=== PATIENT | male | born 1930 | race Caucasian/White ===

== ENCOUNTER 2017-05-04 01:07 | Observation (INO) | payer MEDICARE, BC ==
--- NOTE | 2017-05-04 01:50 | XR ---
EXAM: XR Chest, 2 Views CLINICAL HISTORY: Reason: Chest Pain TECHNIQUE: Frontal and lateral views of the chest. COMPARISON: No relevant prior studies available. FINDINGS: Lungs: Unremarkable. No consolidation. Pleural space: Unremarkable. No pneumothorax. Heart: Findings consistent with prior CABG. Mediastinum: Unremarkable. Bones/joints: Unremarkable. IMPRESSION: No acute findings.
--- NOTE | 2017-05-04 01:50 | ED ---
General Adult HPI - General Chief complaint: Extremity Injury, Upper Stated complaint: L arm pain Time Seen by Provider: 05/04/17 01:15 Source: patient, RN notes reviewed Mode of arrival: ambulatory Limitations: no limitations - History of Present Illness Initial comments: This a 86-year-old male presents emergency Department with chief complaint: Left arm pain. Patient is comes emergency Department with concerns of possible cardiac issues. He states the pain started earlier this morning but states pain is actually resolved on his way to the emergency department. He took ibuprofen twice a day he states he did not feel that it helped. He denies any associated paresthesias or weakness. He states he had no injury. Patient had a prior cardiac stenting and bypass. He denies chest pain, shortness breath, headache or dizziness. He states he only had left arm pain from his shoulder to his left elbow with no other associated symptoms and denied any alleviating or aggravating symptoms - Related Data Allergies Allergy/AdvReac Type Severity Reaction Status Date / Time Sulfa (Sulfonamide Allergy Itching Verified 05/04/17 01:14 Antibiotics) Review of Systems ROS Statement: Those systems with pertinent positive or pertinent negative responses have been documented in the HPI. ROS Other: All systems not noted in ROS Statement are negative. Past Medical History Past Medical History: Diabetes Mellitus, Hyperlipidemia, Hypertension History of Any Multi-Drug Resistant Organisms: None Reported Past Surgical History: Coronary Bypass/CABG, Heart Catheterization With Stent Past Psychological History: No Psychological Hx Reported Smoking Status: Former smoker Past Alcohol Use History: None Reported Past Drug Use History: None Reported General Exam Limitations: no limitations General appearance: alert, in no apparent distress Head exam: Present: atraumatic, normocephalic, normal inspection Eye exam: Present: normal appearance, PERRL, EOMI. Absent: scleral icterus, conjunctival injection, periorbital swelling ENT exam: Present: normal exam, normal oropharynx, mucous membranes moist, TM's normal bilaterally, normal external ear exam Neck exam: Present: normal inspection, full ROM. Absent: tenderness, meningismus, lymphadenopathy Respiratory exam: Present: normal lung sounds bilaterally. Absent: respiratory distress, wheezes, rales, rhonchi, stridor Cardiovascular Exam: Present: regular rate, normal rhythm, normal heart sounds. Absent: systolic murmur, diastolic murmur, rubs, gallop, clicks Extremities exam: Present: normal inspection, full ROM, normal capillary refill. Absent: tenderness, pedal edema, joint swelling, calf tenderness Neurological exam: Present: alert, oriented X3, CN II-XII intact, reflexes normal. Absent: motor sensory deficit Skin exam: Present: warm, dry, intact, normal color. Absent: rash Course Vital Signs 05/04/17 01:08 Temperature 97.7 F Pulse Rate 62 Respiratory 16 Rate Blood Pressure 140/65 O2 Sat by Pulse 99 Oximetry EKG Findings - EKG Comments: EKG Findings:: EKG performed at 1:54 sinus rhythm with first-degree block and noted PVCs, rate of 60 for GA-220 QRS 124 QT/QTC 414/427 Medical Decision Making - Lab Data Result diagrams: 05/04/17 02:04 05/04/17 02:04 Lab Results 05/04/17 05/04/17 05/04/17 Range/Units 02:04 02:04 02:04 WBC 6.7 (3.8-10.6) k/uL RBC 3.98 L (4.30-5.90) m/uL Hgb 12.7 L (13.0-17.5) gm/dL Hct 37.8 L (39.0-53.0) % MCV 95.0 (80.0-100.0) fL MCH 31.8 (25.0-35.0) pg MCHC 33.5 (31.0-37.0) g/dL RDW 14.7 (11.5-15.5) % Plt Count 147 L (150-450) k/uL Neutrophils % 56 % Lymphocytes % 27 % Monocytes % 10 % Eosinophils % 3 % Basophils % 1 % Neutrophils # 3.8 (1.3-7.7) k/uL Lymphocytes # 1.8 (1.0-4.8) k/uL Monocytes # 0.7 (0-1.0) k/uL Eosinophils # 0.2 (0-0.7) k/uL Basophils # 0.1 (0-0.2) k/uL PT (9.0-12.0) sec INR (<1.2) APTT (22.0-30.0) sec Sodium 143 (137-145) mmol/L Potassium 4.9 (3.5-5.1) mmol/L Chloride 108 H (98-107) mmol/L Carbon Dioxide 23 (22-30) mmol/L Anion Gap 12 mmol/L BUN 39 H (9-20) mg/dL Creatinine 1.29 H (0.66-1.25) mg/dL Est GFR (MDRD) Af Amer >60 (>60 ml/min/1.73 sqM) Est GFR (MDRD) Non-Af 53 (>60 ml/min/1.73 sqM) Glucose 96 (74-99) mg/dL Calcium 9.6 (8.4-10.2) mg/dL Magnesium 1.6 (1.6-2.3) mg/dL Total Bilirubin 0.4 (0.2-1.3) mg/dL AST 35 (17-59) U/L ALT 48 (21-72) U/L Alkaline Phosphatase 108 (38-126) U/L Total Creatine Kinase 83 (55-170) U/L CK-MB (CK-2) 1.2 (0.0-2.4) ng/mL CK-MB (CK-2) Rel Index 1.4 Troponin I <0.012 (0.000-0.034) ng/mL Total Protein 6.6 (6.3-8.2) g/dL Albumin 3.9 (3.5-5.0) g/dL 05/04/17 Range/Units 02:04 WBC (3.8-10.6) k/uL RBC (4.30-5.90) m/uL Hgb (13.0-17.5) gm/dL Hct (39.0-53.0) % MCV (80.0-100.0) fL MCH (25.0-35.0) pg MCHC (31.0-37.0) g/dL RDW (11.5-15.5) % Plt Count (150-450) k/uL Neutrophils % % Lymphocytes % % Monocytes % % Eosinophils % % Basophils % % Neutrophils # (1.3-7.7) k/uL Lymphocytes # (1.0-4.8) k/uL Monocytes # (0-1.0) k/uL Eosinophils # (0-0.7) k/uL Basophils # (0-0.2) k/uL PT 10.5 (9.0-12.0) sec INR 1.1 (<1.2) APTT 24.1 (22.0-30.0) sec Sodium (137-145) mmol/L Potassium (3.5-5.1) mmol/L Chloride (98-107) mmol/L Carbon Dioxide (22-30) mmol/L Anion Gap mmol/L BUN (9-20) mg/dL Creatinine (0.66-1.25) mg/dL Est GFR (MDRD) Af Amer (>60 ml/min/1.73 sqM) Est GFR (MDRD) Non-Af (>60 ml/min/1.73 sqM) Glucose (74-99) mg/dL Calcium (8.4-10.2) mg/dL Magnesium (1.6-2.3) mg/dL Total Bilirubin (0.2-1.3) mg/dL AST (17-59) U/L ALT (21-72) U/L Alkaline Phosphatase (38-126) U/L Total Creatine Kinase (55-170) U/L CK-MB (CK-2) (0.0-2.4) ng/mL CK-MB (CK-2) Rel Index Troponin I (0.000-0.034) ng/mL Total Protein (6.3-8.2) g/dL Albumin (3.5-5.0) g/dL Disposition Clinical Impression: Frequent PVCs, Palpitations, Left arm pain, Chest pain Disposition: ADMITTED IP TO THIS [facility] Condition: Stable Referrals: Nonstaff,Physician [Primary Care Provider] - 1-2 days
[2017-05-04 02:15] LABS: Basophils # (A) 0.1 k/uL (0-0.2); Basophils % (A) 1 %; Eosinophils # (A) 0.2 k/uL (0-0.7); Eosinophils % (A) 3 %; HCT 37.8 % (39.0-53.0); HGB 12.7 gm/dL (13.0-17.5); Lymphocytes # (A) 1.8 k/uL (1.0-4.8); Lymphocytes % (A) 27 %; MCH 31.8 pg (25.0-35.0); MCHC 33.5 g/dL (31.0-37.0); Mean Platelet Volume 7.3; Monocytes # (A) 0.7 k/uL (0-1.0); Monocytes % (A) 10 %; Neutrophils # (A) 3.8 k/uL (1.3-7.7); Neutrophils % (A) 56 %; Platelet Count 147 k/uL (150-450); RBC 3.98 m/uL (4.30-5.90); RDW 14.7 % (11.5-15.5); WBC 6.7 k/uL (3.8-10.6)
[2017-05-04 02:22] LABS: INR 1.1 (<1.2); Partial Thromboplastin Time 24.1 sec (22.0-30.0); Prothrombin Time 10.5 sec (9.0-12.0)
[2017-05-04 02:25] LABS: ALT 48 U/L (21-72); AST 35 U/L (17-59); Albumin 3.9 g/dL (3.5-5.0); Alkaline Phosphatase 108 U/L (38-126); Anion Gap 12 mmol/L; Blood Urea Nitrogen 39 mg/dL (9-20); Calcium 9.6 mg/dL (8.4-10.2); Carbon Dioxide 23 mmol/L (22-30); Chloride 108 mmol/L (98-107); Glucose 96 mg/dL (74-99); Magnesium 1.6 mg/dL (1.6-2.3); Potassium 4.9 mmol/L (3.5-5.1); Sodium 143 mmol/L (137-145); Total Bilirubin 0.4 mg/dL (0.2-1.3); Total Protein 6.6 g/dL (6.3-8.2)
[2017-05-04 02:34] LABS: Creatine Kinase 83 U/L (55-170)
[2017-05-04 02:47] LABS: Creatine Kinase MB 1.2 ng/mL (0.0-2.4); Troponin I <0.012 ng/mL (0.000-0.034)
[2017-05-04] MEDS ORDERED: NITROGLYCERIN SL TABS 0.4 MG TAB SUBLINGUAL PRN (03:19)
[2017-05-04] MEDS ORDERED: HEPARIN SODIUM,PORCINE 5,000 UNIT/ML 1 ML VIAL IV ONE (03:19)
[2017-05-04] MEDS ORDERED: HYDROcodone/APAP 5-325MG 1 EACH TAB PO PRN (03:22)
[2017-05-04] MEDS ORDERED: HEPARIN SOD,PORK IN 0.45% NACL 25,000 UNIT in 0.45% NACL 1 500ML.BAG IV SCH (03:30)
[2017-05-04 04:45] VITALS: BMI 26.2
--- NOTE | 2017-05-04 05:49 | P.HPIM ---
History of Present Illness H&P Date: 05/04/17 Chief Complaint: chest pain A 6-year-old male with history of coronary artery disease that presents with symptoms of left arm pain. This started yesterday when he was prepared breakfast. Not associated with exertion shortness of breath denies any chest pain. No nausea. This does not feel like the last time he had angina Review of Systems all 10 SYSTEMs REVIEWED AND ARE NEGATIVE EXCEPT FOR WHAT MENTIONED IN HPI Constitutional: Denies chills, Denies fever Cardiovascular: Denies chest pain, Denies palpitations Respiratory: Denies dyspnea Gastrointestinal: Denies abdominal pain, Denies diarrhea Past Medical History Past Medical History: Diabetes Mellitus, Hyperlipidemia, Hypertension History of Any Multi-Drug Resistant Organisms: None Reported Past Surgical History: Coronary Bypass/CABG, Heart Catheterization With Stent Additional Past Surgical History / Comment(s): 1998 - double bypass - 2005 - stent Past Anesthesia/Blood Transfusion Reactions: No Reported Reaction Date of Last Stent Placement:: 2005 Past Psychological History: No Psychological Hx Reported Smoking Status: Former smoker Past Alcohol Use History: None Reported Past Drug Use History: None Reported - Past Family History Father Family Medical History: Myocardial Infarction ([place]) Additional Family Medical History / Comment(s): passed at 54 Medications and Allergies Home Medications Medication Instructions Recorded Confirmed Type Allopurinol [Zyloprim] 300 mg PO DAILY 05/04/17 05/04/17 History Aspirin [Adult Low Dose Aspirin EC] 81 mg PO DAILY 05/04/17 05/04/17 History Atorvastatin [Lipitor] 40 mg PO DAILY 05/04/17 05/04/17 History Metoprolol Tartrate [Lopressor] 50 mg PO BID 05/04/17 05/04/17 History Ramipril 10 mg PO DAILY 05/04/17 05/04/17 History Spironolactone [Aldactone] 25 mg PO DAILY 05/04/17 05/04/17 History amLODIPine [Norvasc] 5 mg PO DAILY 05/04/17 05/04/17 History glipiZIDE [Glucotrol] 5 mg PO AC-TID 05/04/17 05/04/17 History metFORMIN HCL [Glucophage] 500 mg PO DAILY 05/04/17 05/04/17 History Allergies Allergy/AdvReac Type Severity Reaction Status Date / Time Sulfa (Sulfonamide Allergy Itching Verified 05/04/17 01:14 Antibiotics) Physical Exam Vitals: Vital Signs Temp Pulse Pulse Resp BP BP Pulse Ox 05/04/17 04:44 98.0 F 65 18 159/72 97 05/04/17 04:00 66 18 05/04/17 03:56 97.8 F 61 18 141/66 98 05/04/17 02:30 63 16 147/63 98 05/04/17 01:08 97.7 F 62 16 140/65 99 Intake and Output 05/03/17 05/03/17 05/04/17 14:59 22:59 06:59 Other: Voiding Method Toilet # Voids 2 Weight 95.254 kg Patient Weight 05/04/17 06:59 Weight 95.254 kg - EENT Eyes: EOMI, PERRLA - Neck Neck: no lymphadenopathy - Respiratory Respiratory: bilateral: CTA, negative: rales, wheezing - Cardiovascular Rhythm: regular Heart sounds: normal: S1, S2 - Gastrointestinal General gastrointestinal: normal bowel sounds, soft - Integumentary Integumentary: no pale, no rash - Neurologic Neurologic: CNII-XII intact - Musculoskeletal Musculoskeletal: strength equal bilaterally - Psychiatric Psychiatric: A&O x's 3, appropriate affect Results CBC & Chem 7: 05/04/17 02:04 05/04/17 02:04 Labs: Abnormal Lab Results - Last 24 Hours (Table) 05/04/17 05/04/17 Range/Units 02:04 02:04 RBC 3.98 L (4.30-5.90) m/uL Hgb 12.7 L (13.0-17.5) gm/dL Hct 37.8 L (39.0-53.0) % Plt Count 147 L (150-450) k/uL Chloride 108 H (98-107) mmol/L BUN 39 H (9-20) mg/dL Creatinine 1.29 H (0.66-1.25) mg/dL Thrombosis Risk Factor Assmnt - Choose All That Apply Each Risk Factor Represents 3 Points: Age 75 years or older Thrombosis Risk Factor Assessment Total Risk Factor Score: 3 Thrombosis Risk Factor Assessment Level: Moderate Risk Assessment and Plan (1) Left arm pain Narrative/Plan: serial troponins patient says he has 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 as outpatient continue aspirin cardiology to evaluate Current Visit: Yes Status: Acute Code(s): M79.602 - PAIN IN LEFT ARM SNOMED Code(s): 064000584 (2) Hypertension Narrative/Plan: continue amlodipine, ramipril,and metoprolol Current Visit: Yes Status: Acute Code(s): I10 - ESSENTIAL (PRIMARY) HYPERTENSION SNOMED Code(s): 14968071 (3) Diabetes mellitus Narrative/Plan: continue glipizide and metformin acck ac and hs Current Visit: Yes Status: Acute Code(s): E11.9 - TYPE 2 DIABETES MELLITUS WITHOUT COMPLICATIONS SNOMED Code(s): 96357169 (4) CAD (coronary artery disease) Narrative/Plan: hx of CABG abd stent in the past. Current Visit: Yes Status: Acute Code(s): I25.10 - ATHSCL HEART DISEASE OF LIME CORONARY ARTERY W/O ANG PCTRS SNOMED Code(s): 46268409 (5) Hyperlipidemia Narrative/Plan: conitnue lipitor Current Visit: Yes Status: Acute Code(s): E78.5 - HYPERLIPIDEMIA, UNSPECIFIED SNOMED Code(s): 91706478
[2017-05-04 06:39] LABS: Glucose,Whole Blood 88 mg/dL (75-99)
[2017-05-04 07:23] VITALS: RESP 16
[2017-05-04] MEDS ORDERED: glipiZIDE 5 MG TAB PO SCH (07:30)
[2017-05-04] MEDS ORDERED: ATORVASTATIN 40 MG TAB PO SCH (09:00)
[2017-05-04] MEDS ORDERED: amLODIPine 5 MG TAB PO SCH (09:00)
[2017-05-04] MEDS ORDERED: ASPIRIN 81 MG PO SCH (09:00)
[2017-05-04] MEDS ORDERED: metFORMIN 500 MG TAB PO SCH (09:00)
[2017-05-04] MEDS ORDERED: SPIRONOLACTONE 25 MG TAB PO SCH (09:00)
[2017-05-04] MEDS ORDERED: LISINOPRIL 20 MG TAB PO SCH (09:00)
[2017-05-04] MEDS ORDERED: ALLOPURINOL 300 MG TAB PO SCH (09:00)
[2017-05-04] MEDS ORDERED: METOPROLOL TARTRATE 50 MG TAB PO SCH (09:00)
[2017-05-04] MEDS ORDERED: ISOSORBIDE MONONITRATE ER 15 MG TAB PO SCH (09:15)
[2017-05-04 09:48] LABS: Creatine Kinase 84 U/L (55-170)
[2017-05-04 09:56] LABS: Mean Platelet Volume 7.6; Platelet Count 133 k/uL (150-450)
[2017-05-04 10:02] LABS: Creatine Kinase MB 1.2 ng/mL (0.0-2.4); Troponin I <0.012 ng/mL (0.000-0.034)
--- NOTE | 2017-05-04 10:22 | P.CRDCN ---
History of Present Illness Consult date: 05/04/16 History of present illness: Mr. Sanchez is a pleasant 86-year-old male past medical history significant for coronary artery disease with a SU to the LAD and a radial artery graft to the OM, he also has a stent to the circumflex status post bypass grafting as well as mild RCA disease, diabetes mellitus, hypertension and dyslipidemia. He follows regularly with Dr. Sotelo as an outpatient. Yesterday morning while he was making himself breakfast he got an acute pain in the left arm from the shoulder to the elbow region with circumferential and described as a tight burning sensation in the arm. He attempted to take over- the-counter ibuprofen with no relief. He denies recent trauma or overexertion. He denies any other symptoms than the arm pain. No chest pain, back pain, neck pain, jaw pain, shortness of breath, dizziness, palpitations, nausea or vomiting. The pain persisted until he arrived to the hospital and it subsided on its own. He has had no further episodes since arriving at the hospital. EKG on arrival reveals sinus mechanism with first degree AV block and frequent PVC's. Chest xray negative for an acute cardiopulmonary process. Laboratory data reviewed, hgb 12.7, plt 133, potassium 4.9, magnesium 1.6, cr 1.29, cardiac enzymes negative x2. Current cardiac medications include amlodipine 5 mg, spironalactone 25 mg, ramipril 10 mg, lopresor 50mg, atorvastatin 40 mg and aspirin 81mg. Review of Systems At the time of my exam: CONSTITUTIONAL: Denies fever. Denies chills. EYES: Denies blurred vision. Denies vision changes. Denies eye pain. EARS, NOSE, MOUTH & THROAT: Denies headache. Denies sore throat. Denies ear pain. CARDIOVASCULAR: Denies chest pain. Denies shortness of breath. Denies orthopnea. Denies PND. Denies palpitations. RESPIRATORY: Denies cough. GASTROINTESTINAL: Denies abdominal pain. Denies diarrhea. Denies constipation. Denies nausea. Denies vomiting. MUSCULOSKELETAL: Denies myalgias. INTEGUMENTARY: Denies pruitis. Denies rash. NEUROLOGIC: Denies numbness. Denies tingling. Denies weakness. PSYCHIATRIC: Denies anxiety. Denies depression. ENDOCRINE: Denies fatigue. Denies weight change. Denies polydipsia. Denies polyurina. GENITOURINARY: Denies burning, hematuria or urgency with micturation. HEMATOLOGIC: Denies history of anemia. Denies bleeding. Past Medical History Past Medical History: Diabetes Mellitus, Hyperlipidemia, Hypertension History of Any Multi-Drug Resistant Organisms: None Reported Past Surgical History: Coronary Bypass/CABG, Heart Catheterization With Stent Additional Past Surgical History / Comment(s): 1998 - double bypass - 2005 - stent Past Anesthesia/Blood Transfusion Reactions: No Reported Reaction Date of Last Stent Placement:: 2005 Past Psychological History: No Psychological Hx Reported Smoking Status: Former smoker Past Alcohol Use History: None Reported Past Drug Use History: None Reported - Past Family History Father Family Medical History: Myocardial Infarction ([place]) Additional Family Medical History / Comment(s): passed at 54 Medications and Allergies Home Medications Medication Instructions Recorded Confirmed Type Aspirin [Adult Low Dose Aspirin EC] 81 mg PO DAILY 05/04/17 05/04/17 History Atorvastatin [Lipitor] 40 mg PO DAILY 05/04/17 05/04/17 History Metoprolol Tartrate [Lopressor] 50 mg PO BID 05/04/17 05/04/17 History Ramipril 10 mg PO DAILY 05/04/17 05/04/17 History Spironolactone [Aldactone] 25 mg PO DAILY 05/04/17 05/04/17 History amLODIPine [Norvasc] 5 mg PO DAILY 05/04/17 05/04/17 History glipiZIDE [Glucotrol] 5 mg PO AC-BID 05/04/17 05/04/17 History metFORMIN HCL [Glucophage] 500 mg PO DAILY 05/04/17 05/04/17 History Allergies Allergy/AdvReac Type Severity Reaction Status Date / Time Sulfa (Sulfonamide Allergy Itching Verified 05/04/17 07:45 Antibiotics) Physical Exam Vitals: Vital Signs Temp Pulse Pulse Resp BP BP Pulse Ox 05/04/17 07:20 98.4 F 63 16 114/56 95 05/04/17 04:44 98.0 F 65 18 159/72 97 05/04/17 04:00 66 18 05/04/17 03:56 97.8 F 61 18 141/66 98 05/04/17 02:30 63 16 147/63 98 05/04/17 01:08 97.7 F 62 16 140/65 99 Intake and Output 05/03/17 05/04/17 05/04/17 22:59 06:59 14:59 Other: Voiding Method Toilet # Voids 2 Weight 95.254 kg Blood pressure 114/56 with heart rate of 63 afebrile GENERAL: This is a 86-year-old male in no apparent distress at the time of my examination. HEENT: Head is atraumatic, normocephalic. Pupils are equal, round. Sclerae anicteric. Conjunctivae are clear. Mucous membranes of the mouth are moist. Neck is supple. There is no jugular venous distention. No carotid bruit is heard. LUNGS: Clear to auscultation no wheezes, rales or rhonchi. No chest wall tenderness is noted on palpation or with deep breathing. HEART: Regular rate and rhythm with systolic ejection murmur at the base, no rubs or gallops. S1 and S2 heard. ABDOMEN: Soft, nontender. Bowel sounds are heard. No organomegaly noted. EXTREMITIES: 2+ peripheral pulses with no evidence of peripheral edema and no calf tenderness noted. NEUROLOGIC: Patient is awake, alert and oriented x3. Results 05/04/17 02:04 05/04/17 02:04 Cardiac Enzymes 05/04/17 05/04/17 Range/Units 02:04 02:04 AST 35 (17-59) U/L CK-MB (CK-2) 1.2 (0.0-2.4) ng/mL Troponin I <0.012 (0.000-0.034) ng/mL Coagulation 05/04/17 Range/Units 02:04 PT 10.5 (9.0-12.0) sec APTT 24.1 (22.0-30.0) sec CBC 05/04/17 Range/Units 02:04 WBC 6.7 (3.8-10.6) k/uL RBC 3.98 L (4.30-5.90) m/uL Hgb 12.7 L (13.0-17.5) gm/dL Hct 37.8 L (39.0-53.0) % Plt Count 147 L (150-450) k/uL Comprehensive Metabolic Panel 05/04/17 Range/Units 02:04 Sodium 143 (137-145) mmol/L Potassium 4.9 (3.5-5.1) mmol/L Chloride 108 H (98-107) mmol/L Carbon Dioxide 23 (22-30) mmol/L BUN 39 H (9-20) mg/dL Creatinine 1.29 H (0.66-1.25) mg/dL Glucose 96 (74-99) mg/dL Calcium 9.6 (8.4-10.2) mg/dL AST 35 (17-59) U/L ALT 48 (21-72) U/L Alkaline Phosphatase 108 (38-126) U/L Total Protein 6.6 (6.3-8.2) g/dL Albumin 3.9 (3.5-5.0) g/dL Current Medications Generic Name Dose Route Start Last Admin Trade Name Freq PRN Reason Stop Dose Admin Hydrocodone Bitart/Acetaminophen 1 each 05/04/17 03:22 [place] 5-325 PO Q4HR PRN Pain Allopurinol 300 mg 05/04/17 09:00 Zyloprim PO DAILY [facility] Amlodipine Besylate 5 mg 05/04/17 09:00 Norvasc PO DAILY [facility] Aspirin 81 mg 05/04/17 09:00 Aspirin PO DAILY [facility] Atorvastatin Calcium 40 mg 05/04/17 09:00 Lipitor PO DAILY [facility] Glipizide 5 mg 05/04/17 07:30 Glucotrol PO AC-TID [facility] Heparin Sodium/Sodium Chloride 500 mls @ 20 mls/hr 05/04/17 03:30 05/04/17 03 :53 25,000 unit/ Sodium Chloride IV 10.5 units/kg/hr .Q24H ADELA 20 mls/hr Protocol Administration 10.5 UNITS/KG/HR Lisinopril 40 mg 05/04/17 09:00 Zestril PO DAILY [facility] Metformin HCl 500 mg 05/04/17 09:00 Glucophage PO DAILY [facility] Metoprolol Tartrate 50 mg 05/04/17 09:00 Lopressor PO BID [facility] Nitroglycerin 0.4 mg 05/04/17 03:19 Nitrostat SUBLINGUAL Q5M PRN Chest Pain Spironolactone 25 mg 05/04/17 09:00 Aldactone PO DAILY [facility] Intake and Output 05/03/17 05/04/17 05/04/17 22:59 06:59 14:59 Other: Voiding Method Toilet # Voids 2 Weight 95.254 kg 05/04/17 02:04 05/04/17 02:04 Assessment and Plan Assessment: ASSESSMENT 1. Chest pain, atypical 2. Chronic stable coronary artery disease status post bypass grafting and stent to proximal circumflex artery 3. Essential hypertension 4. Dyslipidemia 5. Diabetes mellitus 6. Acute kidney injury, last known creatinin 1.04 in 2014 PLAN Obtain 2D echocardiogram and doppler study to assess cardiac structure and function. Discontinue heparin infusion. Add Imdur 15 mg PO daily to regimen. Follow up renal function as an outpatient. Consider discontinuation of brannon inhibitor and diuretic if no improvement. Follow-up with Dr. Sotelo in 2-3 weeks. The above impression and plan of care have been discussed and directed by the signing physician. Amparo Stanton, nurse practitioner, acting as scribe for signing physician.
[2017-05-04 11:22] VITALS: BP 162/70; PULSE 62; TEMP 97.9
--- NOTE | 2017-05-04 11:24 | ECHOF ---
Referral Reason:chest pain MEASUREMENTS -------- HEIGHT: 190.5 cm WEIGHT: 95.3 kg BP: 114/56 RVIDd: 3.4 cm (< 3.3) IVSd: 1.4 cm (0.6 - 1.1) LVIDd: 5.5 cm (3.9 - 5.3) LVPWd: 1.2 cm (0.6 - 1.1) IVSs: 2.0 cm LVIDs: 3.6 cm LVPWs: 2.0 cm LAESV Index (A-L): 27.97 ml/m Ao Diam: 2.9 cm (2.0 - 3.7) AV Cusp: 1.1 cm (1.5 - 2.6) LA Diam: 4.9 cm (2.7 - 3.8) MV E Chiki: 1.31 m/s MV DecT: 209 ms MV A Chiki: 1.15 m/s MV E/A Ratio: 1.14 AV maxP.33 mmHg AV meanP.10 mmHg RAP: 5.00 mmHg RVSP: 27.95 mmHg FINDINGS -------- This was a technically adequate study. The left ventricular size is normal. There is mild concentric left ventricular hypertrophy. Overa ll left ventricular systolic function is normal with, an EF between 55 - 60 %. The right ventricle is mildly enlarged. The right ventricular systolic function is normal. Normal LA size by volume 22+/-6 ml/m2. The right atrium is normal in size. Aortic valve is trileaflet and is mildly thickened. There is no evidence of aortic regurgitation. There is mild aortic stenosis present. Peak/mean gradient across the Aortic Valve is 17.33mmHg / 1 0.10mmHg. The mitral valve leaflets are mildly thickened. Mild mitral annular calcification present. Mild m itral regurgitation is present. Mild tricuspid regurgitation present. Right ventricular systolic pressure is normal at < 35 mmHg. There is no evidence of pulmonary hypertension. Trace/mild (physiologic) pulmonic regurgitation. The aortic root size is normal. Normal inferior vena cava with normal inspiratory collapse consistent with estimated right atrial pre ssure of 5 mmHg. The pericardium is normal. There is no pericardial effusion. CONCLUSIONS -------- 1. This was a technically adequate study. 2. The left ventricular size is normal. 3. There is mild concentric left ventricular hypertrophy. 4. Overall left ventricular systolic function is normal with, an EF between 55 - 60 %. 5. The right ventricle is mildly enlarged. 6. Normal LA size by volume 22+/-6 ml/m2. 7. Aortic valve is trileaflet and is mildly thickened. 8. There is mild aortic stenosis present. 9. Peak/mean gradient across the Aortic Valve is 17.33mmHg / 10.10mmHg. 10. The mitral valve leaflets are mildly thickened. 11. Mild mitral annular calcification present. 12. Mild mitral regurgitation is present. 13. Mild tricuspid regurgitation present. 14. Right ventricular systolic pressure is normal at < 35 mmHg. 15. There is no evidence of pulmonary hypertension. 16. Trace/mild (physiologic) pulmonic regurgitation. 17. The aortic root size is normal. 18. There is no pericardial effusion. BUSINESS INTEGRATION MANAGER: Hugo Miramontes RDCS
--- NOTE | 2017-05-04 12:21 | P.DS ---
Providers Date of admission: 05/04/17 03:40 Expected date of discharge: 05/04/17 Attending physician: Erin Cat MD Consults: 05/04/17 03:19 Consult Physician Urgent Consulting Provider: [facility] Consult Reason/Comments: Palpitations, frequent PVCs Do you want consulting provider notified?: Yes Primary care physician: Physician Nonstaff - Discharge Diagnosis(es) (1) Atypical chest pain Status: Acute (2) Diabetes mellitus Status: Acute (3) Hyperlipidemia Status: Acute (4) Hypertension Status: Acute Hospital Course: Patient is a 86-year-old male with history of coronary artery disease , hypertension, dyslipidemia, and diabetes mellitus who presented to the ER with complaint of left arm pain. Patient had an EKG done which showed normal sinus rhythm. Initial troponins were negative. Initial vital signs were within normal limits. He was started on heparin drip and given an aspirin. He was admitted to observation for cardiology evaluation. His left arm pain resolved. He had an echocardiogram performed which was within normal limits. He was seen by cardiology who recommended that the addition of Imdur to his discharge medications. He was therefore determined stable for discharge home with resolution of his left arm pain. He will follow-up with Dr. Sotelo in 2-3 weeks. He is also following with his primary care provider. Patient seen and examined at bedside. Chest pain free and are pain free. No shortness of breath. Has an appointment with his primary care provider next several weeks. Has appointment with Dr. Anguiano to 1 at 4:15 PM. He understands that his echocardiogram was negative that he needs to continue to follow up with cardiology. He is aware that he is being started on Imdur. He was determined stable for discharge. Vital signs reviewed and stable. General: non toxic, no distress, appears at stated age Derm: warm, dry Head: atraumatic, normocephalic, symmetric Eyes: EOMI, no lid lag, anicteric sclera Mouth: no lip lesion, mucus membranes moist Cardiovascular: S1S2 reg, no murmur, positive posterior tibial pulse bilateral, Lungs: CTA bilateral, no rhonchi, no rales , no accessory muscle use Abdominal: soft, nontender to palpation, no guarding, no appreciable organomegaly Ext: no gross muscle atrophy, no edema, no contractures Neuro: CN II-XI grossly intact, no focal neuro deficits Psych: Alert, oriented, appropriate affect A total of 35 minutes of time were spent preparing this complex discharge summary . Pertinent Studies: Echocardiogram-ejection fraction 55-60%, mild LVH left atrial, mild aortic stenosis Procedures: None Patient Condition at Discharge: Stable Plan - Discharge Summary New Discharge Prescriptions: New Isosorbide Mononitrate ER [Imdur] 15 mg PO DAILY #30 dose Allopurinol [Zyloprim] 300 mg PO DAILY tab Continue Spironolactone [Aldactone] 25 mg PO DAILY amLODIPine [Norvasc] 5 mg PO DAILY Metoprolol Tartrate [Lopressor] 50 mg PO BID Ramipril 10 mg PO DAILY Atorvastatin [Lipitor] 40 mg PO DAILY Aspirin [Adult Low Dose Aspirin EC] 81 mg PO DAILY metFORMIN HCL [Glucophage] 500 mg PO DAILY glipiZIDE [Glucotrol] 5 mg PO AC-BID Discharge Medication List Allopurinol [Zyloprim] 300 mg PO DAILY tab 05/04/17 [Rx] Aspirin [Adult Low Dose Aspirin EC] 81 mg PO DAILY 05/04/17 [History] Atorvastatin [Lipitor] 40 mg PO DAILY 05/04/17 [History] Isosorbide Mononitrate ER [Imdur] 15 mg PO DAILY #30 dose 05/04/17 [Rx] Metoprolol Tartrate [Lopressor] 50 mg PO BID 05/04/17 [History] Ramipril 10 mg PO DAILY 05/04/17 [History] Spironolactone [Aldactone] 25 mg PO DAILY 05/04/17 [History] amLODIPine [Norvasc] 5 mg PO DAILY 05/04/17 [History] glipiZIDE [Glucotrol] 5 mg PO AC-BID 05/04/17 [History] metFORMIN HCL [Glucophage] 500 mg PO DAILY 05/04/17 [History] Follow up Appointment(s)/Referral(s): Nonstaff,Physician [Primary Care Provider] - 1-2 days Marly Sotelo MD [STAFF PHYSICIAN] - 05/28/17 4:15 pm Activity/Diet/Wound Care/Special Instructions: heart healthy carb consistent diet Activity as tolerated. Discharge Disposition: HOME SELF-CARE
[2017-05-04 17:02] LABS: Hemoglobin A1C 6.3 % (4.0-6.0)
[2017-05-05] MEDS ORDERED: ASPIRIN 325 MG TAB PO SCH (09:00)
== END 2017-05-04 12:31 | disposition home or self-care (01) ==
LOC: EC 01:07 → 3OBS 03:40
PROVIDERS: ADMIT Internal Medicine; ATTEND Internal Medicine
DX: R07.89 Other chest pain (principal); E11.9 Type 2 diabetes mellitus without complications; E78.5 Hyperlipidemia, unspecified; I10 Essential (primary) hypertension; I44.0 Atrioventricular block, first degree; I25.10 Atherosclerotic heart disease of native coronary artery without angina pectoris; M79.602 Pain in left arm; N17.9 Acute kidney failure, unspecified; Z95.5 Presence of coronary angioplasty implant and graft; Z95.1 Presence of aortocoronary bypass graft; Z88.2 Allergy status to sulfonamides; Z87.891 Personal history of nicotine dependence; Z82.49 Family history of ischemic heart disease and other diseases of the circulatory system; Z79.899 Other long term (current) drug therapy; Z79.82 Long term (current) use of aspirin; Z79.84 Long term (current) use of oral hypoglycemic drugs
CPT/HCPCS: 93005 ×2; 96366; 96376; 96365; 99284; 36415; 93306; 80053; 82550; 82553; 83735; 84484; 85025; 85049; 85610; 85730; 83036; 71046; G0378; J1644 ×2; 96374